=== PATIENT | female | born 1970 | race African-American/Black ===

== ENCOUNTER 2022-08-03 18:51 | Emergency (ER) | payer OTHER ==
[~2022-08-03] VITALS: Ht 165.1 cm; Wt 70.3 kg
[2022-08-03 18:56] VITALS: BP 149/83
[2022-08-03] MEDS ORDERED: KETOROLAC 30 MG/ML VIAL IM ONE (20:15)
[2022-08-03] MEDS ORDERED: BACITRACIN OINT 500 UNITS/GM PKT TP ONE ×2 (20:15→20:59)
[2022-08-03] MEDS ORDERED: IBUP-2213 PO (20:18)
[2022-08-03] MEDS ORDERED: AMOX-999 PO (20:18)
--- NOTE | 2022-08-03 20:26 | NUR ---
PT MEDICATED PER ORDERS GIVEN. PT UPDATED ON POC WITH FULL RETURNED VERBAL UNDERSTANDING.
--- NOTE | 2022-08-03 20:30 | NUR ---
PT TO BED 2 VIA AMBULATION WITH STEADY GAIT
[2022-08-03 21:04] VITALS: BP 132/76
--- NOTE | 2022-08-03 21:06 | NUR ---
Patient discharged with v/s stable. Written and verbal after care instructions given and explained. Patient alert, oriented and verbalized understanding of instructions. Ambulatory with steady gait. All questions addressed prior to discharge. ID band removed. Patient advised to follow up with PMD. Rx of AMOXICILLIN/ IBUPROFREN given. Patient educated on indication of medication including possible reaction and side effects. Opportunity to ask questions provided and answered.
== END 2022-08-03 21:06 | disposition home or self-care (01) ==
LOC: MED 18:51
DX: S61.552A Open bite of left wrist, initial encounter (principal); Z88.0 Allergy status to penicillin; Z79.899 Other long term (current) drug therapy; W54.0XXA Bitten by dog, initial encounter; Y93.89 Activity, other specified; Y92.89 Other specified places as the place of occurrence of the external cause; Y99.8 Other external cause status
CPT/HCPCS: 90471; 90715; 96372; 99284; J1885

== ENCOUNTER 2023-02-16 12:46 | Emergency (ER) | payer OTHER ==
[~2023-02-16] VITALS: Ht 162.6 cm; Wt 69.9 kg
[~2023-02-16 12:46] MED LIST: AMOX-999 PO; IBUP-2213 PO
[2023-02-16 13:15] VITALS: BP 121/74
--- NOTE | 2023-02-16 13:23 | NUR ---
PT W/C ASSISTED TO ER BED 8
--- NOTE | 2023-02-16 14:11 | NUR ---
Patient being evaluated by physician at bedside.
[2023-02-16] MEDS ORDERED: NACL 0.9% 1,000 ML IV ONE (14:15)
[2023-02-16] MEDS ORDERED: diphenhydrAMINE 50 MG/ML VIAL IVP ONE (14:15)
[2023-02-16] MEDS ORDERED: METOCLOPRAMIDE 10 MG/2 ML INJ VIAL IVP ONE (14:15)
[2023-02-16 15:06] LABS: APPEARANCE,URINE CLEAR (CLEAR); BILIRUBIN,URINE NEGATIVE (NEGATIVE); BLOOD, URINE NEGATIVE (NEGATIVE); COLOR,URINE YELLOW (YELLOW); LEUKOCYTE ESTERASE ,URINE NEGATIVE (NEGATIVE); NITRITE, URINE NEGATIVE (NEGATIVE); UGLUCOSE NEGATIVE (NEGATIVE)
--- NOTE | 2023-02-16 15:39 | NUR ---
PT C/O BROWN, BODY ACHES, NOSE BLEED, DIZZINESS, LIGHT HEADED X 1WK WORSENED TODAY. SAFETY MAINTAINED. HX: ARTHRITIS
[2023-02-16] MEDS ORDERED: KETOROLAC 30 MG/ML VIAL IVP ONE (15:40)
[2023-02-16] MEDS ORDERED: ACET-8905 PO (16:13)
[2023-02-16] MEDS ORDERED: ONDA8TAB87 PO (16:13)
[2023-02-16] MEDS ORDERED: IBUP-2213 PO (16:13)
[2023-02-16 16:40] VITALS: BP 120/66
--- NOTE | 2023-02-16 17:15 | NUR ---
Patient discharged with v/s stable. Written and verbal after care instructions given. Patient alert, oriented and verbalized understanding of instructions. Ambulatory with steady gait. All questions addressed prior to discharge. ID band removed. Patient advised to follow up with PMD. Rx of HYDROCODONE, IBUPROFEN, ONDANSETRON HCI given. Opportunity to ask questions provided and answered.
--- NOTE | 2023-02-16 17:20 | NUR ---
The patient's care was reviewed and supervised by Melissa Waldron RN.
== END 2023-02-16 16:40 | disposition home or self-care (01) ==
LOC: MED 12:46 → EDBD 12:46 → MED 16:40
DX: R51.9 Headache, unspecified (principal); R11.0 Nausea; R04.0 Epistaxis; M54.2 Cervicalgia; Z79.1 Long term (current) use of non-steroidal anti-inflammatories (NSAID); Z79.2 Long term (current) use of antibiotics; Z88.0 Allergy status to penicillin
CPT/HCPCS: 81003; 81025; 96361; 96374; 96375; 99284; J1200; J1885; J2765; J7030